=== PATIENT | male | born 1960 | race African-American/Black ===

== ENCOUNTER 2016-08-23 04:04 | Emergency (ER) | payer MEDICARE ==
[2016-08-23 02:12] LABS: BASOPHILS ABSOLUTE 0.03 10/3/uL (0.0-0.16); EOSINOPHILS 1.6 %; EOSINOPHILS ABSOLUTE 0.05 10/3/uL (0.0-0.53); HEMATOCRIT 35.1 % (40.0-51.0); HEMOGLOBIN 11.7 g/dL (13.6-17.8); IMMATURE GRANULOCYTES 0.6 %; IMMATURE GRANULOCYTES ABSOLUTE 0.02 10/3/uL (0.0-0.11); LYMPHOCYTES 35.4 %; LYMPHOCYTES ABSOLUTE 1.11 10/3/uL (0.67-4.30); MEAN CORPUS HGB CONC 33.3 g/dL (32.0-36.0); MEAN CORPUSCULAR HEMOGLOB 24.6 pg (26.0-34.0); MEAN CORPUSCULAR VOLUME 73.9 fL (80-100); MONOCYTES 12.1 %; MONOCYTES ABSOLUTE 0.38 10/3/uL (0.21-1.20); NEUTROPHILS 49.3 %; NEUTROPHILS ABSOLUTE 1.55 10/3/uL (2.02-8.40); RBC DISTRIBUTION WIDTH 21.2 % (12.0-16.0); RED CELL COUNT 4.75 10/6/uL (4.7-6.1); WHITE BLOOD CELLS 3.1 10/3/uL (4.5-10.5)
[2016-08-23 02:15] LABS: MANUAL DIFF NO %; PLATELET COUNT 100 10/3/uL (150-400)
[2016-08-23 02:17] LABS: A/G RATIO 0.5 (0.7-1.9); ALBUMIN 2.7 G/DL (3.5-5.0); ALKALINE PHOSPHATASE 114 U/L (45-117); BUN (BLOOD UREA NITROGEN) 19 MG/DL (6-23); CALCIUM, SERUM 7.7 MG/DL (8.5-10.4); CHLORIDE, SERUM 92 MMOL/L (96-112); CO2 (CARBON DIOXIDE) 25 MMOL/L (24-34); CREATININE 7.84 MG/DL (0.70-1.30); GFR AFRICAN AMERICAN 8 ML/MIN (>=60); GFR NON AFRICAN AMERICAN 7 ML/MIN (>=60); GLUCOSE, SERUM 84 MG/DL (60-99); POTASSIUM, SERUM 3.5 MMOL/L (3.5-5.3); SGOT(AST) 33 U/L (5-40); SGPT(ALT) 16 U/L (5-65); SODIUM, SERUM 132 MMOL/L (135-148); TOTAL BILIRUBIN 0.3 MG/DL (0-1.2); TOTAL PROTEIN 7.7 G/DL (6.0-8.5)
[2016-08-23 02:21] LABS: ACETAMINOPHEN LEVEL (TYLENOL) < 2.0 MCG/ML (10.0-20.0)
[2016-08-23 02:33] LABS: ALCOHOL 335 MG/DL (0)
[2016-08-23 02:34] LABS: PLATELET ESTIMATE DEC (ADEQUATE)
[2016-08-23 02:35] LABS: SPHEROCYTES OCC (0-2/OIF); TARGET CELLS OCC (1-2/OIF) (0-1/OIF)
[2016-08-23] MEDS ORDERED: NORV10 PO (17:52)
[2016-08-23] MEDS ORDERED: COREG12 PO (17:52)
[2016-08-23] MEDS ORDERED: BION TEARS OPH (17:52)
[2016-08-23] MEDS ORDERED: PRIN10 PO (17:52)
[2016-08-23] MEDS ORDERED: CYANO1000T PO (17:53)
== END 2016-08-23 10:09 | disposition home or self-care (01) ==
LOC: ER 04:04
PROVIDERS: Specialist
DX: F10.129 Alcohol abuse with intoxication, unspecified (principal); I13.11 Hypertensive heart and chronic kidney disease without heart failure, with stage 5 chronic kidney disease, or end stage renal disease; N18.6 End stage renal disease; F17.200 Nicotine dependence, unspecified, uncomplicated; Z99.2 Dependence on renal dialysis
CPT/HCPCS: 70450; 72125; 72170; 73060-RT; 73552-RT; 80053; 80307; 85025; 93005; 99285; G0480; J2405

== ENCOUNTER 2016-08-23 15:11 | Inpatient (IN) | payer MEDICARE ==
--- NOTE | ~2016-08-23 | HP ---
History And Physical [place] [id number] [facility] [place]. [address] NAME: REAL PAREDES : 62 STATUS : ADM IN [facility]#: [id number] AGE: 56 ADM/REG DATE : 08/23/16 MR#: [id number] REPORT SERV DATE: 08/24/16 DICTATED BY: MORENA SALVADOR DATE: 08/23/16 REPORT STATUS : Draft TRANSCRIBED BY: MODSilver DATE: 08/23/16 DATE OF ADMISSION: 08/23/2016 REASON FOR ADMISSION: Right femoral neck fracture after falling, after in a drunken state last night. PRIMARY CARE DOCTOR: Appears to be unclear. Goes to dialysis in [place] every Saturday, Saturday, Saturday via left arm AV fistula. HISTORY OF PRESENT ILLNESS: This is a 56-year-old male, known alcoholic, drinks about half pint of 80 proof alcohol per patient, known active smoker at least 35-pack years. Still actively smoking. The patient comes in, was admittedly drunk last night, blacked out, did not remember what happen, he fell, apparently hit his right side of the body, may have hit his head, unclear, came to, and states the last thing he knew after he fell he was in the emergency department today this morning. They did an x-ray. Initially ED did not think, the patient had a right femoral neck fracture. Upon Radiology read, indeed had a mildly impacted subcapital right femoral neck fracture. The patient had actually left the ED. The patient was called in transit going back home, call back into the emergency department for admission which occurred. The patient's last dialysis was Saturday. The patient's last drink was yesterday. The patient usually seeks medical care near the [facility]. The patient had positive chills. No fevers. Positive nausea. Positive vomiting. Positive diarrhea for several days. No chest pain. No chest pressure. Positive shortness of breath. Positive productive cough, last started on Saturday. The patient states he has had a productive cough since the last Saturday. REVIEW OF SYSTEMS: The patient also states he has inability to move his right wrist or having abduction of his right shoulder, exquisite pain to palpation in that area. PAST MEDICAL HISTORY: See above. PAST SURGICAL HISTORY: See above. ALLERGIES: APPARENTLY, NO KNOWN DRUG ALLERGIES. REVIEW OF SYSTEMS: History And Physical [address] [place]. [address] NAME: REAL PAREDES : 62 STATUS : ADM IN PAT#: [id number] AGE: 56 ADM/REG DATE : 08/23/16 MR#: [id number] REPORT SERV DATE: 08/24/16 DICTATED BY: MORENA SALVADOR DATE: 08/23/16 REPORT STATUS : Draft TRANSCRIBED BY: SUKHWINDER DATE: 08/23/16 Done, see HPI. Otherwise, negative. FAMILY HISTORY: Hypertension in at least one parent. HOME MEDICATIONS: See MAR. Continue what is relevant. OBJECTIVE: VITAL SIGNS: He is 180 systolic currently, this is from 164/96, 97.1 temp, 102 pulse, 23 respirations, 99% on room air. GENERAL: No acute distress. HEENT: PERRLA. No scleral icterus. CARDIOVASCULAR: Tachycardic, but regular. RESPIRATORY: Decreased breath sounds, bibasilar. Bibasilar crackles. ABDOMEN: Nontender, nondistended. Positive bowel sounds. EXTREMITIES: Ascitic fluid. Tenderness to palpation in his right upper extremity. He cannot have any range of motion of right shoulder abduction. No edema. No ecchymosis. NEURO: A and O x3/4, does not know the month, this is likely not his baseline. GCS of 15, otherwise. LABORATORY DATA: Lab shows a white count 13.1, hemoglobin 11.7, 100,000 platelets, T. bilirubin 0.3, alkaline phosphatase 114, calcium 7.7, albumin 2.4, 132 sodium, 3.5 potassium, 25 bicarb, 7.84 creatinine, 19 BUN, unclear baseline creatinine. Alcohol less than 10 now, AST over ALT 08/30. We will get a CT of his right upper extremity. Did have x-ray of his humerus, apparently was unremarkable. The patient has exquisite tenderness to palpation, decreased range of motion. X-ray of the right hip, see above. EKG sinus tach, 108. No ischemic ST-T changes. ASSESSMENT AND PLAN: 1. Right-sided fall with sustained mildly impacted subcapital right femoral neck fracture. 2. Decreased range of motion of right upper extremity with exquisite pain to right upper extremity. 3. End-stage renal disease, with left arteriovenous fistula. 4. Dialysis should be tomorrow. 5. Positive productive cough, history of active smoking with pancytopenia, systemic inflammatory response syndrome criteria, rule out pneumonia. 6. Question of cirrhosis history. 7. History of alcoholism. PLAN: We will go ahead and admit this patient. Dr. Arguello will be consulted. Also already been seen by Renal, who plans on doing dialysis after surgery tomorrow. His risk of possible withdrawal usually occur in 48 to 72 hours or after. We will place on Librium scheduled and Ativan p.r.n. Panculture. The patient given pancytopenia, get a CT abdomen and pelvis to rule out any cirrhosis. CT of his right upper extremity given concern for range of motion and negative humeral x-ray. CT of his brain as he does not know the month currently. Chest x-ray, given productive cough. Clinical COPD acute exacerbation, 2 out of 3 GOLD criteria, warranting Solu-Medrol, Spiriva, bronchodilator protocol. Requiring oxygen at this moment for which he is not on home oxygen. Will start him on labetalol and History And Physical [address] [address] NAME: REAL PAREDES : 62 STATUS : ADM IN PAT#: [id number] AGE: 56 ADM/REG DATE : 08/23/16 MR#: [id number] REPORT SERV DATE: 08/24/16 DICTATED BY: MORENA SALVADOR DATE: 08/23/16 REPORT STATUS : Draft TRANSCRIBED BY: MODL DATE: 08/23/16 hydralazine p.r.n. Make n.p.o. after midnight. Get hepatitis serologies. All questions were answered. It took well over 60 minutes to do. Reference [employer] and [employer]. WST/MODL Morena Salvador DO / [id number] CC: Chema Barrera M.D.
--- NOTE | ~2016-08-23 | DS ---
Discharge Summary [place] [address] [facility] [place]. [address] NAME: REAL PAREDES : 62 STATUS : DIS IN PAT#: [id number] AGE: 56 ADM/REG DATE : 08/23/16 MR#: [id number] REPORT SERV DATE: 08/29/16 DICTATED BY: HOOD JOHNSTON DATE: 08/29/16 REPORT STATUS : Draft TRANSCRIBED BY: MODL DATE: 08/29/16 ADMISSION DATE: 08/23/2016 DISCHARGE DATE: 08/28/2016 ADDENDUM: HOSPITAL COURSE: This patient was kept an extra day in the hospital because the rehab facility did not have any bed available that day. This patient remained stable. He has plans for dialyzing on the next day after being at rehab. This was discussed with Nephrology as well. Otherwise, he remained stable and is being discharged in stable condition. MAKI/SUKHWINDER Hood Johnston M.D. / [id number] CC: Hood Johnston M.D.
--- NOTE | ~2016-08-23 | CN ---
Consultation Report [facility] [address] [place]. [address] NAME: REAL PAREDES : 62 STATUS : ADM IN PAT#: [id number] AGE: 56 ADM/REG DATE : 08/23/16 MR#: [id number] REPORT SERV DATE: 08/23/16 DICTATED BY: VIKRAM AYALA DATE: 08/23/16 REPORT STATUS : Draft TRANSCRIBED BY: MODSilver DATE: 08/23/16 NEPHROLOGY CONSULTATION DATE OF CONSULTATION: INDICATION FOR CONSULTATION: End-stage renal disease management. HISTORY OF PRESENT ILLNESS: Mr. Paredes is a 56-year-old male who presented to the emergency room with right lower extremity pain after fall at home. He initially was sent out of the ER and then asked to return when x-rays were over-read and found that he had a right femoral neck fracture. He is followed on chronic dialysis at [facility], dialyzing Saturday, Saturday, and Saturday by left upper extremity AV fistula. His alcohol level was positive at 335, potassium is 3.5, creatinine 7.84. Sodium 132, glucose 84. Hemoglobin 11.7, WBC 3.1, platelet count 100. He has a longstanding history of ETOH abuse, pancytopenia, and is presumed to have underlying cirrhosis. PAST MEDICAL HISTORY: End-stage renal disease, dialyzing Saturday, Saturday, and Saturday at [facility] by left upper extremity AV fistula; hypertension; anemia; thrombocytopenia; neutropenia; history of recurrent right pleural effusion; possible cirrhosis; history of tachycardia; history of nephrectomy as he donated a kidney to his brother; ETOH abuse; tobacco abuse. SOCIAL HISTORY: The patient is . Has two children. 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 Currently, drinks one-half pint of alcohol daily and smokes one pack of cigarettes daily. FAMILY HISTORY: Father with diabetes, of leukemia. Mother with diabetes and hypertension. of renal failure, on dialysis. One brother with diabetes who developed end-stage renal disease, required transplant. One brother dying at age 43 from myocardial infarction. HOME MEDICATIONS: Amlodipine, carvedilol, lisinopril, vitamin B12. ALLERGIESN: one known. REVIEW OF SYSTEMS: HEENT: No change in visual acuity. No epistaxis. No otic infection. No pharyngitis. PULMONARY: Occasional shortness breath. No cough or hemoptysis. CARDIAC: Notes rapid heart rate. Occasional swelling in feet. No chest pain. GI: No nausea, vomiting, or melena. : Denies gross hematuria. MUSCULOSKELETAL: Pain in right hip and right upper extremity. INTEGUMENT: No rash. No itching. NEUROLOGIC: No seizure history. No lateralizing weakness. Consultation Report [place] [address] [place]. [address] NAME: REAL PAREDES : 62 STATUS : ADM IN [facility]#: [id number] AGE: 56 ADM/REG DATE : 08/23/16 MR#: [id number] REPORT SERV DATE: 08/23/16 DICTATED BY: VIKRAM AYALA DATE: 08/23/16 REPORT STATUS : Draft TRANSCRIBED BY: SUKHWINDER DATE: 08/23/16 Remainder of 12-point review of systems is negative. PHYSICAL EXAMINATION: VITAL SIGNS: Blood pressure 164/96, temperature 97.1, respiratory rate 22, pulse 102. GENERAL: Pleasant male, alert, cooperative. HEENT: Eyes, no scleral icterus. Pupils equal, reactive to light. Extraocular movement intact. Nares patent. No discharge. Throat, no injection. Mucous membranes moist. NECK: No thyromegaly, masses, or bruits. CHEST/LUNGS: Few late crackles laterally. CARDIAC: Regular tachycardia. No gallop. No rub. ABDOMEN: Mild right lower quadrant discomfort. Bowel sounds normoactive. No hepatosplenomegaly. : Rectal not performed. EXTREMITIES: No edema. Left upper extremity AV fistula with good bruit and thrill. DERMIS: No rash. No skin lesions. NEUROLOGIC: Cranial nerves intact. Can move all extremities, but has pain with right lower extremity. MUSCULOSKELETAL: No deformity. Pain with movement of right lower extremity. IMPRESSION: 1. Right femoral neck fracture following fall at home. 2. End-stage renal disease, dialyzing Saturday, Saturday, and Saturday at [facility] by left upper extremity arteriovenous fistula. 3. Hypertension. 4. Pancytopenia. 5. Probable cirrhosis. 6. ETOH abuse. 7. Tobacco abuse. 8. History of tachycardia. PLAN: 1. Labs. 2. Hemodialysis, . 3. Medications reviewed. 4. Ativan to assist with preventing ETOH withdrawal. CG/SUKHWINDER Vikram Ayala M.D. / [id number] Consultation Report [address] [place]. [address] NAME: REAL PAREDES : 62 STATUS : ADM IN PAT#: [id number] AGE: 56 ADM/REG DATE : 08/23/16 MR#: [id number] REPORT SERV DATE: 08/23/16 DICTATED BY: VIKRAM AYALA DATE: 08/23/16 REPORT STATUS : Draft TRANSCRIBED BY: SUKHWINDER DATE: 08/23/16 CC: Chema Barrera M.D.
--- NOTE | ~2016-08-23 | HP ---
History And Physical [address] [place]. [address] NAME: REAL PAREDES : 62 STATUS : ADM IN PAT#: [id number] AGE: 56 ADM/REG DATE : 08/23/16 MR#: [id number] REPORT SERV DATE: 08/24/16 DICTATED BY: ESTELITA CAIN DATE: 08/24/16 REPORT STATUS : Draft TRANSCRIBED BY: MODSilver DATE: 08/24/16 DATE OF ADMISSION: 08/23/2016 CHIEF COMPLAINT: Right hip pain and right shoulder pain. HISTORY: This is a 56-year-old male who said he tripped and fell Saturday off a porch, and since then, his shoulder has felt painful and "paralyzed." More importantly, he has complained of right hip pain, and he is unable to walk. He denies pain or injury elsewhere. ALLERGIES: NONE. MEDICATIONS: See chart. PAST MEDICAL HISTORY: Hypertension and chronic renal failure and dialysis. PAST SURGICAL HISTORY: Hernia surgery. SOCIAL HISTORY: A pack a day cigarettes for 16 years. About 4 alcoholic beverages 7 days a week. No illicit drug use known. FAMILY HISTORY: No known anesthetic complications. REVIEW OF SYSTEMS: As above. PHYSICAL EXAMINATION: GENERAL: He is alert and oriented x3 and in no apparent distress. HEENT: Atraumatic and normocephalic. NECK: Supple. CHEST: Symmetric. MUSCULOSKELETAL: Very tender over the right shoulder with some questionable anterior prominence. On the shoulder, he has severe pain with any attempted range of motion. Skin is intact. Compartment supple. 2+ pulses. Some very weak dorsiflexions in the right wrist as well as globally throughout the right upper extremity. Right lower extremity pain with any range of motion. Thready pulses. Skin is intact. Compartment supple. Somewhat subjectively decreased sensation. LABORATORY DATA: CT scan, right femoral neck fracture. ASSESSMENT: 1. Right femoral neck fracture. 2. Suspect right shoulder dislocation with questionable neurologic injury from this fall. 3. Dialysis. 4. Alcohol abuse. PLAN: I am seeing him in concert with the medical doctor. We will plan a right hip ORIF. History And Physical [address] [place]. [address] NAME: REAL PAREDES Anita : 62 STATUS : ADM IN PAT#: [id number] AGE: 56 ADM/REG DATE : 08/23/16 MR#: [id number] REPORT SERV DATE: 08/24/16 DICTATED BY: ESTELITA CAIN DATE: 08/24/16 REPORT STATUS : Draft TRANSCRIBED BY: SUKHWINDER DATE: 08/24/16 He has had no imaging of the shoulder, we will get x-rays of his shoulder as well, and determine a plan from there. WTB/SUKHWINDER Stan Cain M.D. / [id number] CC: Chema Barrera M.D.
--- NOTE | ~2016-08-23 | DS ---
Discharge Summary [facility] [address] [place]. [address] NAME: REAL PAREDES : 62 STATUS : ADM IN PAT#: [id number] AGE: 56 ADM/REG DATE : 08/23/16 MR#: [id number] REPORT SERV DATE: 08/28/16 DICTATED BY: HOOD JOHNSTON DATE: 08/27/16 REPORT STATUS : Draft TRANSCRIBED BY: MODL DATE: 08/27/16 ADMISSION DATE: 08/23/2016 DISCHARGE DATE: 08/27/2016 DISCHARGE DIAGNOSES: 1. Right hip fracture, status post ORIF by Dr. Arguello. 2. End-stage kidney disease with solitary kidney currently on 3 times a week hemodialysis. 3. Chronic alcohol abuse. No evidence of DTs. 4. Chronic obstructive pulmonary disease. 5. Pancytopenia most likely due to alcohol abuse. 6. History of nephrectomy donated to his brother. CONSULTANTS DURING THIS HOSPITALIZATION: 1. Stan Arguello M.D., of Orthopedic Surgery. 2. Casimiro Gallegos M.D., of Nephrology. INVASIVE PROCEDURES DONE DURING THIS HOSPITALIZATION: ORIF of the right hip from a traumatic hip fracture. BRIEF HISTORY OF PRESENT ILLNESS: The patient is a 56-year-old, male, apparently heavily drinks about half pint of 80 proof alcohol and known active smoker, came in where he had fallen and suffered a hip fracture, so he was admitted. For detailed history and physical exam, please see note dictated by Dr. Benjy Mccoy on 08/23/2012. HOSPITAL COURSE: After being admitted to the hospital, this patient was dialyzed and then taken to the operating room for performing the ORIF. Postoperatively, this patient has done well. He has worked with Physical Therapy but he is still not fully functional where he can stay home by himself as he has to drive himself to dialysis. So it is decided that he would need rehab. This will be arranged through our Case Management Department. We did control his alcoholism by use of Librium and Ativan protocol as well as we gave him thiamine, folate, and B12. He has continued to do well. He has no evidence of DTs. He does have some slight confusion. This may be related to the use of anesthesia and this should hopefully get better with time going forward. Otherwise, he remained stable and is being discharged in stable condition. DISCHARGE DISPOSITION: To rehab. DISCHARGE ACTIVITY: Per facility. DISCHARGE DIET: Renal diet. DISCHARGE MEDICATIONS: Norvasc 10 mg once daily, Coreg 12.5 mg twice daily, Librium 10 mg p.o. taper, iron 300 mg p.o. with breakfast and supper, lisinopril 10 mg once daily, Coumadin 5 mg once daily, DuoNeb every six hours p.r.n., Pulmicort 1 mg twice daily inhalation, hydrocodone 7.5/325 one tablet q.4 p.r.n. for pain, oxycodone 5 mg two tabs every four hours p.r.n. for breakthrough pain, MiraLax one packet p.o. twice daily p.r.n. Discharge Summary [address] [address] NAME: REAL PAREDES : 62 STATUS : ADM IN [facility]#: [id number] AGE: 56 ADM/REG DATE : 08/23/16 MR#: [id number] REPORT SERV DATE: 08/28/16 DICTATED BY: HOOD JOHNSTON DATE: 08/27/16 REPORT STATUS : Draft TRANSCRIBED BY: SUKHWINDER DATE: 08/27/16 for constipation, Artificial Tears in both eyes, vitamin B12 one tablet daily. DISCHARGE FOLLOWUP: With Nephrology as previously scheduled with patient's primary care physician doctor. MAKI/SUKHWINDER Hood Johnston M.D. / [id number] CC: Hood Johnston M.D.
--- NOTE | ~2016-08-23 | OP ---
Record Of Operation [facility] [address] [place]. [address] NAME: REAL PAREDES : 62 STATUS : DIS IN PAT#: [id number] AGE: 56 ADM/REG DATE : 08/23/16 MR#: [id number] REPORT SERV DATE: 08/28/16 DICTATED BY: ESTELITA CAIN DATE: 08/28/16 REPORT STATUS : Draft TRANSCRIBED BY: MODL DATE: 08/28/16 DATE OF PROCEDURE: 08/24/2016 PREOPERATIVE DIAGNOSES: 1. Right femoral neck fracture, nondisplaced. 2. Right shoulder dislocation. POSTOPERATIVE DIAGNOSES: 1. Right femoral neck fracture, nondisplaced. 2. Right shoulder dislocation. PROCEDURES: 1. Open reduction and internal fixation, right femoral neck fracture. 2. Closed reduction of right shoulder dislocation. DESCRIPTION OF PROCEDURE: The patient was taken to the operating room and placed supine on the table in normal fashion without incident. General anesthetic was induced per the anesthesiologist. While under anesthesia and fluoroscopic guidance, the shoulder was relocated from an anterior dislocation, but it was grossly unstable to be easily dislocated anteriorly and back it posteriorly again. He was obviously much too ill for any type of fixation. He was placed in a sling in the closed position and then attention directed to the hip. He was carefully positioned, padded, prepped, and draped on the fracture table. Under fluoroscopic guidance, after placing the isolation drape, guidewire was placed percutaneously superior to the level of the lesser trochanter. I am into the head, checked on AP and lateral views. This was followed by a small incision, parallel pin guide was used to place two other guidewires. This followed by depth gauge, drilling near the cortex and self-drilling and self-tapping screws were placed and tightened by hand. After using power initially, they were checked in AP and lateral views. Again, there was excellent positioning, guidewires removed, wound irrigated, closed and dressed sterilely. The patient was awakened and taken to the postanesthesia care unit without incident. COMPLICATIONS: None. SPECIMENS: None. ESTIMATED BLOOD LOSS: About 10 mL. WTB/MODL Stan Cain M.D. / [id number] Record Of Operation [place] [address] [place]. [address] NAME: REAL PAREDES : 62 STATUS : DIS IN PAT#: [id number] AGE: 56 ADM/REG DATE : 08/23/16 MR#: [id number] REPORT SERV DATE: 08/28/16 DICTATED BY: ESTELITA CAIN DATE: 08/28/16 REPORT STATUS : Draft TRANSCRIBED BY: SUKHWINDER DATE: 08/28/16 CC: Hood Johnston M.D.
[2016-08-23] MEDS ORDERED: COREG12 PO (17:52)
[2016-08-23] MEDS ORDERED: BION TEARS OPH (17:52)
[2016-08-23] MEDS ORDERED: NORV10 PO (17:52)
[2016-08-23] MEDS ORDERED: PRIN10 PO (17:52)
[2016-08-23] MEDS ORDERED: CYANO1000T PO (17:53)
[2016-08-23 22:27] LABS: BASOPHILS 0.2 %; BASOPHILS ABSOLUTE 0.01 10/3/uL (0.0-0.16); EOSINOPHILS 0 %; HEMOGLOBIN 10.5 g/dL (13.6-17.8); IMMATURE GRANULOCYTES 0.2 %; IMMATURE GRANULOCYTES ABSOLUTE 0.01 10/3/uL (0.0-0.11); LYMPHOCYTES 16.5 %; MEAN CORPUS HGB CONC 33.7 g/dL (32.0-36.0); MEAN CORPUSCULAR HEMOGLOB 24.5 pg (26.0-34.0); MEAN CORPUSCULAR VOLUME 72.7 fL (80-100); MONOCYTES 14.4 %; MONOCYTES ABSOLUTE 0.61 10/3/uL (0.21-1.20); NEUTROPHILS 68.7 %; NEUTROPHILS ABSOLUTE 2.91 10/3/uL (2.02-8.40); PLATELET COUNT 89 10/3/uL (150-400); RBC DISTRIBUTION WIDTH 21.5 % (12.0-16.0); RED CELL COUNT 4.29 10/6/uL (4.7-6.1); WHITE BLOOD CELLS 4.2 10/3/uL (4.5-10.5)
[2016-08-23 22:29] LABS: HEMATOCRIT 31.2 % (40.0-51.0)
[2016-08-23 22:30] LABS: MANUAL DIFF NO %
[2016-08-23 22:45] LABS: A/G RATIO 0.5 (0.7-1.9); ALBUMIN 2.6 G/DL (3.5-5.0); CALCIUM, SERUM 7.5 MG/DL (8.5-10.4); CHLORIDE, SERUM 89 MMOL/L (96-112); CO2 (CARBON DIOXIDE) 29 MMOL/L (24-34); GLOBULIN 4.8 G/DL (2.5-4.1); PHOSPHORUS, SERUM 6.7 MG/DL (2.5-4.5); SGOT(AST) 33 U/L (5-40); SGPT(ALT) 16 U/L (5-65); SODIUM, SERUM 132 MMOL/L (135-148); TOTAL BILIRUBIN 0.6 MG/DL (0-1.2); TOTAL PROTEIN 7.4 G/DL (6.0-8.5); TROPONIN I <0.02 NG/ML (<0.05)
[2016-08-23 22:46] LABS: ALKALINE PHOSPHATASE 102 U/L (45-117); BUN (BLOOD UREA NITROGEN) 26 MG/DL (6-23); CREATININE 9.17 MG/DL (0.70-1.30); GFR AFRICAN AMERICAN 7 ML/MIN (>=60); GFR NON AFRICAN AMERICAN 6 ML/MIN (>=60); GLUCOSE, SERUM 108 MG/DL (60-99); POTASSIUM, SERUM 4.6 MMOL/L (3.5-5.3)
[2016-08-24 08:07] LABS: INTERNATIONAL NORMAL RATI 1.2 UNITS (-); PROTIME (NOT ORD) 14.8 SEC (12.0-14.5)
[2016-08-24 08:11] LABS: GLYCOHEMOGLOBIN (HbA1c) 4.5 % (4.7-6.1)
[2016-08-24 08:16] LABS: BASOPHILS 0 %; EOSINOPHILS 0 %; HEMATOCRIT 32.8 % (40.0-51.0); IMMATURE GRANULOCYTES 0.4 %; IMMATURE GRANULOCYTES ABSOLUTE 0.01 10/3/uL (0.0-0.11); LYMPHOCYTES 6.7 %; LYMPHOCYTES ABSOLUTE 0.19 10/3/uL (0.67-4.30); MEAN CORPUS HGB CONC 33.5 g/dL (32.0-36.0); MEAN CORPUSCULAR HEMOGLOB 24.8 pg (26.0-34.0); MONOCYTES ABSOLUTE 0.17 10/3/uL (0.21-1.20); NEUTROPHILS 86.9 %; NEUTROPHILS ABSOLUTE 2.47 10/3/uL (2.02-8.40); PLATELET COUNT 104 10/3/uL (150-400); RBC DISTRIBUTION WIDTH 21.3 % (12.0-16.0); RED CELL COUNT 4.43 10/6/uL (4.7-6.1); WHITE BLOOD CELLS 2.8 10/3/uL (4.5-10.5)
[2016-08-24 08:18] LABS: MANUAL DIFF NO %
[2016-08-24 08:40] LABS: ALBUMIN 2.5 G/DL (3.5-5.0); ANISOCYTOSIS 1+ (5-10/OIF) (0-5/OIF); CHLORIDE, SERUM 88 MMOL/L (96-112); CO2 (CARBON DIOXIDE) 28 MMOL/L (24-34); CREATININE 9.66 MG/DL (0.70-1.30); GFR AFRICAN AMERICAN 6 ML/MIN (>=60); GFR NON AFRICAN AMERICAN 5 ML/MIN (>=60); GIANT PLATELET RARE; HYPOCHROMIA 1+ (3-10/OIF) (0-2/OIF); MICROCYTES 1+ (5-10/OIF) (0-5/OIF); PLATELET ESTIMATE SLT DEC (ADEQUATE); POLYCHROMASIA 1+ (2-5/OIF) (0-1/OIF); SODIUM, SERUM 130 MMOL/L (135-148); TARGET CELLS OCC (1-2/OIF) (0-1/OIF)
[2016-08-24 08:41] LABS: BUN (BLOOD UREA NITROGEN) 30 MG/DL (6-23); GLUCOSE, SERUM 135 MG/DL (60-99); PHOSPHORUS, SERUM 7.9 MG/DL (2.5-4.5); POTASSIUM, SERUM 6.1 MMOL/L (3.5-5.3)
[2016-08-24 09:07] LABS: HEPATITIS B SURFACE ANTIGEN NON-REACTIVE (NON-REACT)
[2016-08-24 09:15] LABS: HEPATITIS B CORE AB IGM NON-REACTIVE (NON-REAC); HEPATITIS C ANTIBODY NON-REACTIVE (NON-REACT)
[2016-08-24 09:17] LABS: HEP A ANTIBODY IGM NON-REACTIVE (NON-REACT)
[2016-08-24 09:29] LABS: BASOPHILS 0 %; EOSINOPHILS 0 %; HEMATOCRIT 34.5 % (40.0-51.0); HEMOGLOBIN 11.3 g/dL (13.6-17.8); IMMATURE GRANULOCYTES 0.4 %; IMMATURE GRANULOCYTES ABSOLUTE 0.01 10/3/uL (0.0-0.11); LYMPHOCYTES 9.1 %; LYMPHOCYTES ABSOLUTE 0.23 10/3/uL (0.67-4.30); MEAN CORPUS HGB CONC 32.8 g/dL (32.0-36.0); MEAN CORPUSCULAR HEMOGLOB 24.3 pg (26.0-34.0); MEAN CORPUSCULAR VOLUME 74.2 fL (80-100); MONOCYTES 5.9 %; MONOCYTES ABSOLUTE 0.15 10/3/uL (0.21-1.20); NEUTROPHILS 84.6 %; NEUTROPHILS ABSOLUTE 2.15 10/3/uL (2.02-8.40); PLATELET COUNT 110 10/3/uL (150-400); RBC DISTRIBUTION WIDTH 21.4 % (12.0-16.0); RED CELL COUNT 4.65 10/6/uL (4.7-6.1); WHITE BLOOD CELLS 2.5 10/3/uL (4.5-10.5)
[2016-08-24 09:32] LABS: MANUAL DIFF NO %
[2016-08-24 09:37] LABS: INTERNATIONAL NORMAL RATI 1.2 UNITS (-); PROTIME (NOT ORD) 14.8 SEC (12.0-14.5)
[2016-08-24 09:42] LABS: BUN (BLOOD UREA NITROGEN) 31 MG/DL (6-23); CALCIUM, SERUM 8.2 MG/DL (8.5-10.4); CHLORIDE, SERUM 87 MMOL/L (96-112); CO2 (CARBON DIOXIDE) 28 MMOL/L (24-34); CREATININE 9.75 MG/DL (0.70-1.30); GFR AFRICAN AMERICAN 6 ML/MIN (>=60); GFR NON AFRICAN AMERICAN 5 ML/MIN (>=60); GLUCOSE, SERUM 132 MG/DL (60-99); POTASSIUM, SERUM 6.1 MMOL/L (3.5-5.3); SODIUM, SERUM 128 MMOL/L (135-148)
[2016-08-24 10:08] LABS: ANISOCYTOSIS 1+ (5-10/OIF) (0-5/OIF); MICROCYTES 1+ (5-10/OIF) (0-5/OIF); PLATELET ESTIMATE SLT DEC (ADEQUATE)
[2016-08-24 10:09] LABS: HYPOCHROMIA 1+ (3-10/OIF) (0-2/OIF); TARGET CELLS OCC (1-2/OIF) (0-1/OIF)
[2016-08-24 16:55] LABS: CALCIUM, SERUM 8.5 MG/DL (8.5-10.4); CHLORIDE, SERUM 95 MMOL/L (96-112); CO2 (CARBON DIOXIDE) 28 MMOL/L (24-34); GFR AFRICAN AMERICAN 14 ML/MIN (>=60); GFR NON AFRICAN AMERICAN 12 ML/MIN (>=60); GLUCOSE, SERUM 155 MG/DL (60-99)
[2016-08-24 16:56] LABS: BUN (BLOOD UREA NITROGEN) 14 MG/DL (6-23); CREATININE 4.87 MG/DL (0.70-1.30); SODIUM, SERUM 137 MMOL/L (135-148)
[2016-08-25 08:56] LABS: BASOPHILS 0 %; EOSINOPHILS 0 %; HEMATOCRIT 32.1 % (40.0-51.0); HEMOGLOBIN 10.8 g/dL (13.6-17.8); IMMATURE GRANULOCYTES 0.2 %; IMMATURE GRANULOCYTES ABSOLUTE 0.01 10/3/uL (0.0-0.11); LYMPHOCYTES 9.9 %; LYMPHOCYTES ABSOLUTE 0.45 10/3/uL (0.67-4.30); MEAN CORPUS HGB CONC 33.6 g/dL (32.0-36.0); MEAN CORPUSCULAR HEMOGLOB 25.1 pg (26.0-34.0); MEAN CORPUSCULAR VOLUME 74.7 fL (80-100); MONOCYTES 14.8 %; MONOCYTES ABSOLUTE 0.67 10/3/uL (0.21-1.20); NEUTROPHILS 75.1 %; PLATELET COUNT 141 10/3/uL (150-400); RBC DISTRIBUTION WIDTH 21.4 % (12.0-16.0)
[2016-08-25 08:59] LABS: MANUAL DIFF NO %; WHITE BLOOD CELLS 4.5 10/3/uL (4.5-10.5)
[2016-08-25 09:04] LABS: INTERNATIONAL NORMAL RATI 1.2 UNITS (-); PROTIME (NOT ORD) 14.9 SEC (12.0-14.5)
[2016-08-25 09:17] LABS: ALBUMIN 2.5 G/DL (3.5-5.0); BUN (BLOOD UREA NITROGEN) 30 MG/DL (6-23); CALCIUM, SERUM 8.4 MG/DL (8.5-10.4); CHLORIDE, SERUM 95 MMOL/L (96-112); CO2 (CARBON DIOXIDE) 27 MMOL/L (24-34); CREATININE 7.54 MG/DL (0.70-1.30); GFR AFRICAN AMERICAN 8 ML/MIN (>=60); GFR NON AFRICAN AMERICAN 7 ML/MIN (>=60); GLUCOSE, SERUM 152 MG/DL (60-99); PHOSPHORUS, SERUM 7.4 MG/DL (2.5-4.5); POTASSIUM, SERUM 4.8 MMOL/L (3.5-5.3); SODIUM, SERUM 133 MMOL/L (135-148)
[2016-08-25 11:12] LABS: PLATELET ESTIMATE SLT DEC (ADEQUATE)
[2016-08-25 11:13] LABS: HYPOCHROMIA 1+ (3-10/OIF) (0-2/OIF); MICROCYTES 1+ (5-10/OIF) (0-5/OIF); POLYCHROMASIA 1+ (2-5/OIF) (0-1/OIF); TARGET CELLS FEW (3-10/OIF) (0-1/OIF); TEARDROP SHAPED RBCS OCC (0-2/OIF)
[2016-08-25 11:18] LABS: ANISOCYTOSIS 1+ (5-10/OIF) (0-5/OIF)
[2016-08-25 11:19] LABS: HELMET CELLS OCC (0-2/OIF)
[2016-08-26 07:44] LABS: BASOPHILS 0 %; EOSINOPHILS 0 %; HEMATOCRIT 29.9 % (40.0-51.0); HEMOGLOBIN 9.9 g/dL (13.6-17.8); IMMATURE GRANULOCYTES 0.2 %; IMMATURE GRANULOCYTES ABSOLUTE 0.01 10/3/uL (0.0-0.11); LYMPHOCYTES 11.8 %; MEAN CORPUS HGB CONC 33.1 g/dL (32.0-36.0); MEAN CORPUSCULAR HEMOGLOB 24.1 pg (26.0-34.0); MEAN CORPUSCULAR VOLUME 72.9 fL (80-100); MONOCYTES 8.9 %; MONOCYTES ABSOLUTE 0.53 10/3/uL (0.21-1.20); NEUTROPHILS 79.1 %; NEUTROPHILS ABSOLUTE 4.71 10/3/uL (2.02-8.40); PLATELET COUNT 136 10/3/uL (150-400); RBC DISTRIBUTION WIDTH 21.1 % (12.0-16.0)
[2016-08-26 07:46] LABS: MANUAL DIFF NO %
[2016-08-26 07:49] LABS: INTERNATIONAL NORMAL RATI 1.2 UNITS (-); PROTIME (NOT ORD) 14.9 SEC (12.0-14.5)
[2016-08-26 07:55] LABS: CALCIUM, SERUM 7.9 MG/DL (8.5-10.4); CHLORIDE, SERUM 89 MMOL/L (96-112); CO2 (CARBON DIOXIDE) 25 MMOL/L (24-34); POTASSIUM, SERUM 4.2 MMOL/L (3.5-5.3); SODIUM, SERUM 129 MMOL/L (135-148)
[2016-08-26 07:56] LABS: BUN (BLOOD UREA NITROGEN) 44 MG/DL (6-23); CREATININE 8.58 MG/DL (0.70-1.30); GFR AFRICAN AMERICAN 7 ML/MIN (>=60); GFR NON AFRICAN AMERICAN 6 ML/MIN (>=60); GLUCOSE, SERUM 103 MG/DL (60-99); PHOSPHORUS, SERUM 5.6 MG/DL (2.5-4.5)
[2016-08-26 08:21] LABS: ANISOCYTOSIS 1+ (5-10/OIF) (0-5/OIF); PLATELET ESTIMATE SLT DEC (ADEQUATE); POIKILOCYTOSIS 1+ (5-10/OIF) (0-5/OIF)
[2016-08-26 08:22] LABS: TARGET CELLS FEW (3-10/OIF) (0-1/OIF)
[2016-08-27 07:04] LABS: ALBUMIN 2.2 G/DL (3.5-5.0); BUN (BLOOD UREA NITROGEN) 55 MG/DL (6-23); CALCIUM, SERUM 7.6 MG/DL (8.5-10.4); CHLORIDE, SERUM 90 MMOL/L (96-112); CO2 (CARBON DIOXIDE) 26 MMOL/L (24-34); GFR AFRICAN AMERICAN 6 ML/MIN (>=60); GFR NON AFRICAN AMERICAN 5 ML/MIN (>=60); GLUCOSE, SERUM 107 MG/DL (60-99); PHOSPHORUS, SERUM 4.3 MG/DL (2.5-4.5); SODIUM, SERUM 130 MMOL/L (135-148)
[2016-08-27 07:08] LABS: INTERNATIONAL NORMAL RATI 1.9 UNITS (-)
[2016-08-27 07:09] LABS: PROTIME (NOT ORD) 21.5 SEC (12.0-14.5)
[2016-08-27 08:24] LABS: BASOPHILS 0 %; EOSINOPHILS 1.3 %; EOSINOPHILS ABSOLUTE 0.05 10/3/uL (0.0-0.53); HEMOGLOBIN 9.5 g/dL (13.6-17.8); IMMATURE GRANULOCYTES 0.3 %; IMMATURE GRANULOCYTES ABSOLUTE 0.01 10/3/uL (0.0-0.11); LYMPHOCYTES 16.1 %; LYMPHOCYTES ABSOLUTE 0.62 10/3/uL (0.67-4.30); MEAN CORPUS HGB CONC 33.9 g/dL (32.0-36.0); MEAN CORPUSCULAR HEMOGLOB 24.9 pg (26.0-34.0); MEAN CORPUSCULAR VOLUME 73.3 fL (80-100); MEAN PLATELET VOLUME 9.3 fL (9.2-13.0); MONOCYTES 15.6 %; NEUTROPHILS 66.7 %; NEUTROPHILS ABSOLUTE 2.56 10/3/uL (2.02-8.40); PLATELET COUNT 133 10/3/uL (150-400); RBC DISTRIBUTION WIDTH 20.5 % (12.0-16.0); RED CELL COUNT 3.82 10/6/uL (4.7-6.1); WHITE BLOOD CELLS 3.8 10/3/uL (4.5-10.5)
[2016-08-27 08:26] LABS: MANUAL DIFF NO %
[2016-08-27 08:39] LABS: MICROCYTES 1+ (5-10/OIF) (0-5/OIF); PLATELET ESTIMATE SLT DEC (ADEQUATE)
[2016-08-27 08:40] LABS: POIKILOCYTOSIS 1+ (5-10/OIF) (0-5/OIF)
[2016-08-27 08:41] LABS: POLYCHROMASIA 1+ (2-5/OIF) (0-1/OIF)
[2016-08-27 08:42] LABS: ANISOCYTOSIS 1+ (5-10/OIF) (0-5/OIF); SCHISTOCYTES OCC (0-2/OIF)
[2016-08-28 07:13] LABS: INTERNATIONAL NORMAL RATI 2.4 UNITS (-)
[2016-08-28 07:16] LABS: PROTIME (NOT ORD) 26.3 SEC (12.0-14.5)
== END 2016-08-28 12:49 | DRG 480 ==
LOC: ER 15:11 → 1SO 19:38
PROVIDERS: Internal Medicine; Nurse Practitioner; Specialist
PROC: 0RSJXZZ Reposition Right Shoulder Joint, External Approach (ICD-10-PCS; 2016-08-24)
PROC: 5A1D60Z (ICD-10-PCS; 2016-08-24)
PROC: 0QS604Z Reposition Right Upper Femur with Internal Fixation Device, Open Approach (ICD-10-PCS; principal; 2016-08-24 16:45)
DX: S72.011A Unspecified intracapsular fracture of right femur, initial encounter for closed fracture (principal); N18.6 End stage renal disease; D61.818 Other pancytopenia; R65.10 Systemic inflammatory response syndrome (SIRS) of non-infectious origin without acute organ dysfunction; I12.0 Hypertensive chronic kidney disease with stage 5 chronic kidney disease or end stage renal disease; E87.1 Hypo-osmolality and hyponatremia; E87.5 Hyperkalemia; S43.004A Unspecified dislocation of right shoulder joint, initial encounter; K70.30 Alcoholic cirrhosis of liver without ascites; W17.89XA Other fall from one level to another, initial encounter; J44.9 Chronic obstructive pulmonary disease, unspecified; D63.1 Anemia in chronic kidney disease; Y90.8 Blood alcohol level of 240 mg/100 ml or more; F17.210 Nicotine dependence, cigarettes, uncomplicated; F10.20 Alcohol dependence, uncomplicated; Z90.5 Acquired absence of kidney; Z99.2 Dependence on renal dialysis; Z79.899 Other long term (current) drug therapy
CPT/HCPCS: 70450; 71010; 72125; 72170; 73030-RT; 73060-RT; 73200-RT; 73552-RT; 73700-LT; 74176; 76000; 80048; 80053; 80069; 80074; 80307; 82140; 82962; 83036; 83735; 84100; 84145; 84443; 84484; 85025; 85610; 87040; 93005; 94640; 96374; 97110-GP; 97116-GP; 97162-GP; 97166-GO; 97530-GP; 99285; A9270-GY; C1713; C1769; G0257; G0480; G8987-CL-GO; G8988-CK-GO; J0690; J1170; J1956; J2250; J2270; J2370; J2405; J2930; J3010; J3411

== ENCOUNTER 2016-09-17 05:56 | Inpatient (IN) | payer MEDICARE ==
--- NOTE | ~2016-09-17 | CN ---
Consultation Report [facility] [address] [place]. [address] NAME: REAL PAREDES : 62 STATUS : ADM IN [facility]#: [id number] AGE: 56 ADM/REG DATE : 09/17/16 MR#: [id number] REPORT SERV DATE: 09/17/16 DICTATED BY: JEFFERY UMAÑA DATE: 09/17/16 REPORT STATUS : Draft TRANSCRIBED BY: MODSilver DATE: 09/17/16 NEPHROLOGY CONSULTATION DATE OF CONSULTATION: 09/17/2016 CHIEF COMPLAINT: Shortness of breath and hypoxia. HISTORY OF PRESENT ILLNESS: The patient is a 56-year-old male with significant past medical history of ESRD, chronic pancytopenia, alcohol abuse, tobacco use, presents with increasing shortness of breath within the past 24-48 hours. He was recently hospitalized at [facility] status post a fall. The patient required an ORIF of his right hip due to right neck femoral fracture. Also, he had a dislocated right shoulder that was repositioned. The patient was discharged to the [facility] for rehabilitation. The patient is going to dialysis on Mondays, Wednesdays, and Fridays at [facility] in [place]. Dry weight of approximately 62 kg, increased in a stepwise fashion. The patient's weight is currently 69-70 kg. Chest x-ray shows pulmonary edema and questionable pneumonia. He denies any fevers, chills, or cough, but does have shortness of breath. He does utilize tobacco on a daily basis. His procalcitonin is 1.18. His white blood cell count is 6.8. He has no left shift. He is noted to have elevated BNP. No positive cardiac markers. No chest pain. No palpitations. His hemoglobin is 7.8. His CO2 is 24.1. PAST MEDICAL HISTORY/PAST SURGICAL HISTORY: As noted above. SOCIAL HISTORY: Currently at the [facility]. Positive tobacco. Positive alcohol. FAMILY MEDICAL HISTORY: No known kidney disease. ALLERGIES: ALLERGIES TO MEDICATIONS, NO KNOWN DRUG ALLERGIES. MEDICATIONS: Include, 1. Carvedilol 12.5 mg p.o. b.i.d. 2. Colace 100 mg twice a day. 3. Iron sulfate daily. 4. Budesonide 0.5/2 mL one vial nebulizer twice a day. 5. [place] 7.5 mg p.o. q.6 hours p.r.n. 6. Amlodipine 10 mg daily. 7. Lisinopril 10 mg daily. 8. PhosLo 667 t.i.d. with meals. 9. Vitamin B12. 10.Thiamin. REVIEW OF SYSTEMS: Negative, otherwise stated in the HPI. Consultation Report [facility] [place]. [address] NAME: REAL PAREDES : 62 STATUS : ADM IN PAT#: [id number] AGE: 56 ADM/REG DATE : 09/17/16 MR#: [id number] REPORT SERV DATE: 09/17/16 DICTATED BY: JEFFERY UMAÑA DATE: 09/17/16 REPORT STATUS : Draft TRANSCRIBED BY: SUKHWINDER DATE: 09/17/16 PHYSICAL EXAMINATION: VITAL SIGNS: Temperature is 98.0, pulse is 83, blood pressure is 156/88. GENERAL: No apparent distress, on non-rebreather. Thin. SKIN: No petechiae or purpura. NECK: No JVP. Trachea is midline. CARDIOVASCULAR: Regular rate and rhythm. No gallops, rubs, or murmurs. RESPIRATORY: Distant, coarse breath sounds. ABDOMEN: Soft, nontender, and nondistended. Positive bowel sounds. EXTREMITIES: No peripheral edema. Left upper AV fistula. LABORATORY DATA: Sodium is 131, potassium is 4.8, chloride is 92, CO2 is 27, BUN is 32, creatinine is 8.12. Troponin is less than 0.02. BNP is 3028. White blood cell count is 6.8, hemoglobin is 7.8, platelets are 320. IMAGING: Chest x-ray: Pulmonary edema. ASSESSMENT: 1. Hypoxia secondary to volume overload in the setting of chronic obstructive pulmonary disease exacerbation. I do not believe the patient has pneumonia at this time. 2. Volume overload. 3. Chronic obstructive pulmonary disease exacerbation. 4. I do not believe patient has pneumonia at this time based on no evidence of leukocytosis or left shift. 5. History of alcohol use. 6. Right lower extremity edema with history of right shoulder dislocation status post fall. 7. Chronic pancytopenia. 8. End-stage renal disease. 9. Hypertension. PLAN: 1. Hemodialysis. 2. P.r.n. home medications. 3. A.m. labs. 4. Echocardiogram. 5. A.m. chest x-ray. 6. X-ray of the right upper extremity. HUDSON/SUKHWINDER Jeffery Umaña M.D. Consultation Report [address] [address] NAME: REAL PAREDES : 62 STATUS : ADM IN PAT#: [id number] AGE: 56 ADM/REG DATE : 09/17/16 MR#: [id number] REPORT SERV DATE: 09/17/16 DICTATED BY: JEFFERY UMAÑA DATE: 09/17/16 REPORT STATUS : Draft TRANSCRIBED BY: SUKHWINDER DATE: 09/17/16 / [id number] CC: Hood Johnston M.D.
--- NOTE | ~2016-09-17 | HP ---
History And Physical [id number] [place]. [address] NAME: REAL PAREDES : 62 STATUS : ADM IN [facility]#: [id number] AGE: 56 ADM/REG DATE : 09/17/16 MR#: [id number] REPORT SERV DATE: 09/17/16 DICTATED BY: HOOD JOHNSTON DATE: 09/17/16 REPORT STATUS : Draft TRANSCRIBED BY: MODSilver DATE: 09/17/16 DATE OF ADMISSION: 09/17/2016 ADDENDUM: PAST SURGICAL HISTORY: As noted above. ALLERGIES: NO KNOWN DRUG ALLERGIES. HOME MEDICATIONS: From the list that I have from the transferring facility it seemed like he was on amlodipine 10 mg once daily, Coreg 12.5 mg twice daily, and lisinopril 10 mg p.o. daily. SOCIAL HISTORY: This patient is a heavy alcohol abuser and continues to use cigarettes as well. Denies use of illicit substances. FAMILY HISTORY: Father with diabetes and heart disease. Mother with cancer, diabetes, and heart disease. PHYSICAL EXAMINATION: GENERAL: male, lying on the bed, appears to be in moderate to severe respiratory distress. PO2 on room air on ABG about 46. Sats of about 92 on 35% O2. VITAL SIGNS: Blood pressure 163/91, temperature is 97.5, pulse of 81. HEENT: Head is normocephalic, atraumatic. Pupils equal, round, and reactive to light. Extraocular muscles are intact. Sclerae anicteric. Conjunctivae normal. Oropharynx without lesion. Tongue protrusion midline. Uvula midline. NECK: Supple. No jugular venous distention. No carotid bruits or thyromegaly is appreciated. No lymphadenopathy in the neck is palpable. HEART: Tachycardic. No murmurs, rubs, or gallops. PMI nondisplaced. LUNGS: Diffuse bilateral crackles, wet, 1/3 up from both bases. No evidence of any focal consolidation. Some wheezing expiratory is noted. Rhonchis are noted. ABDOMEN: Scaphoid, soft, nontender, good bowel sounds. No rebound or guarding. No organomegaly. EXTREMITIES: Without cyanosis, clubbing, or edema. MUSCULOSKELETAL: Seems to be grossly intact at this time. Left upper extremity fistula for hemodialysis is noted. LABORATORY DATA: Procalcitonin level is pending. Sodium 131, potassium 4.3, chloride 92, bicarb 27, BUN 32, creatinine 8.12. Glucose of 75, albumin is 2.0, total protein is 7.0, calcium is 8.3. Liver function studies are unremarkable. Troponin is less than 0.02. His BNP is 3028. White count is 6.8, hemoglobin of 7.8, hematocrit 23, platelet count is 320,000. No left shift. PT is 22.2. INR is 2.0. IMPRESSION: 1. Pulmonary edema. 2. Hypoxic respiratory failure. History And Physical [address] [address] NAME: REAL PAREDES : 62 STATUS : ADM IN [facility]#: [id number] AGE: 56 ADM/REG DATE : 09/17/16 MR#: [id number] REPORT SERV DATE: 09/17/16 DICTATED BY: HOOD JOHNSTON DATE: 09/17/16 REPORT STATUS : Draft TRANSCRIBED BY: MODL DATE: 09/17/16 3. Chronic obstructive pulmonary disease exacerbation. 4. Possibility of hospital-acquired pneumonia. 5. Alcoholism. 6. End-stage renal disease on hemodialysis 3 times weekly. 7. Chronic pancytopenia. 8. Recent right hip fracture, status post ORIF. 9. Hypertension. PLAN: The patient will be admitted. Hemodialysis should be done immediately in this patient with volume overload. DuoNeb, Brovana, and Pulmicort nebulizing treatments. I will empirically treat him with vancomycin and cefepime. We will obtain blood cultures. O2 support will be given. Consider BiPAP if this patient's oxygenation does not hold up. Home medications will be addressed when available from the pharmacy. The patient remains a full code. MAKI/SUKHWINDER Hood Johnston M.D. / [id number] CC: Hood Johnston M.D.
--- NOTE | ~2016-09-17 | DS ---
Discharge Summary [facility] [address] [facility] [place]. [address] NAME: REAL PAREDES : 62 STATUS : DIS IN PAT#: [id number] AGE: 56 ADM/REG DATE : 09/17/16 MR#: [id number] REPORT SERV DATE: 09/21/16 DICTATED BY: SHALINI MUIR DATE: 09/20/16 REPORT STATUS : Draft TRANSCRIBED BY: MODL DATE: 09/20/16 ADMISSION DATE: 09/17/2016 DISCHARGE DATE: 09/20/2016 DISCHARGE DIAGNOSES: 1. Acute pulmonary edema. 2. Acute hypoxemic respiratory failure. 3. Acute exacerbation of chronic obstructive pulmonary disease. 4. End-stage renal disease, on hemodialysis. 5. Chronic anemia. 6. Acute anemia. 7. Hypertension. 8. Insomnia. 9. Alcoholism. 10.Right femoral neck fracture, nondisplaced, status post open reduction internal fixation, 08/24/2016. 11.Right shoulder dislocation, status post closed reduction, 08/24/2016. 12.Right elbow distal humerus transverse supracondylar fracture minimally displaced, most likely from fall on 08/23/2016, not fully appreciated on initial x-rays, status post long arm splinting and sling placement, Dr. Serrano, 09/18/2016. 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 OPERATIONS/PROCEDURES: Hemodialysis x3. PRESENT ILLNESS: This is a 56-year-old male, who was in this hospital 08/23/2016 to 08/28/2016, discharged by Dr. Johnston with diagnoses: 1. Right hip fracture, status post ORIF by Dr. Arguello. 2. End-stage kidney disease with solitary kidney, currently on three times a week hemodialysis. 3. Chronic alcohol abuse with no evidence of DTs during hospitalization. 4. Chronic obstructive pulmonary disease. 5. Pancytopenia, most likely due to alcohol abuse. 6. History of nephrectomy, donated to his brother. He was transferred to the [facility] [place] for rehab. He received hemodialysis at [place]. He was sent to [facility] with complaints of chest pain and shortness of breath. Then had a fairly abrupt onset in the absence of fever, chills, or nausea or vomiting. At that facility, he was thought to have volume overload. He was transferred here for dialysis as described on admission history and physical examination. ADDITIONAL HISTORY: Per Dr. Johnston. PHYSICAL EXAMINATION: Per Dr. Johnston. ADMISSION LABORATORY: Per Dr. Johnston. Discharge Summary [address] [address] NAME: REAL PAREDES : 62 STATUS : DIS IN PAT#: [id number] AGE: 56 ADM/REG DATE : 09/17/16 MR#: [id number] REPORT SERV DATE: 09/21/16 DICTATED BY: SHALINI MUIR DATE: 09/20/16 REPORT STATUS : Draft TRANSCRIBED BY: MODSilver DATE: 09/20/16 HOSPITAL COURSE: He was admitted by Dr. Johnston with: 1. Pulmonary edema. 2. Hypoxemic respiratory failure. 3. Chronic obstructive pulmonary disease exacerbation. 4. Possibility of hospital-acquired pneumonia. 5. Alcoholism. 6. End-stage renal disease, on hemodialysis three times weekly. 7. Chronic pancytopenia. 8. Recent right hip fracture, status post ORIF. 9. Hypertension. He was admitted to [address] [place] [address]. Johnston consulted Nephrology. The patient was seen by Dr. Umaña. He felt that he had volume overload and did not have pneumonia. Dialysis was initiated on 09/17/2016, 09/18/2016, and 09/19/2016. Per dialysis records, he had 10.5 L of net ultrafiltration. On admission, because of the possibility of healthcare-associated pneumonia and Dr. Johnston obtained cultures and started broad-spectrum antimicrobial therapy with cefepime and vancomycin. With the above-mentioned therapy, the patient's admitting symptoms completely resolved. By 09/20/2016, he had no cough or dyspnea. He was comfortable lying flat in bed. He was eating without nausea, vomiting, or abdominal pain. Blood cultures from admission were no growth x2. His white blood cell count was 6.8 on 09/17/2016 and 5.0 on 09/18/2016. A procalcitonin level was 1.18 on 09/17/2016 and 0.9 on the 09/18/2016. His admission chest x-ray was read as pulmonary venous hypertension with development of interstitial pulmonary edema and increasing right pleural effusion with atelectasis at the right base. A followup chest x-ray on the 09/20/2016 was improved with a persistent right pleural effusion with atelectasis. Clinically, he was not thought to have pneumonia during his hospitalization. While hospitalized, he did complain of right shoulder and arm pain that he had had since his original fall. Additional radiographs were obtained. A right shoulder film was normal. A right elbow film demonstrated an acute transverse fracture distal right humerus. A right forearm film questioned impaction fracture distal radial head. A right hip film showed [address] stabilizing a mildly impacted right femoral neck fracture. He was seen in consultation by Dr. Serrano with diagnosis and treatment as described. The exact reason for his volume overload was unclear unless they are related to dietary indiscretion. Troponins were less than 0.02 x2. An echocardiogram was done that was Discharge Summary [address] [address] NAME: REAL PAREDES : 62 STATUS : DIS IN PAT#: [id number] AGE: 56 ADM/REG DATE : 09/17/16 MR#: [id number] REPORT SERV DATE: 09/21/16 DICTATED BY: SHALINI MUIR DATE: 09/20/16 REPORT STATUS : Draft TRANSCRIBED BY: SUKHWINDER DATE: 09/20/16 normal. His hemoglobin was 7.8, on admission, with a repeat 7.9. Diagnostic studies included a low iron 20, low TIBC 112, low percent sat of 18 with an elevated ferritin of 847. A TSH has been normal at 3.53 in August, it was not repeated. A hepatitis profile was done in August and not repeated. A serum protein electrophoresis was requested, it is not available at this time. Asymptomatic from a cardiopulmonary status on 09/20/2016, it was felt that he could be safely transferred back to [facility] for rehab. He will have dialysis in [place] three times per week. DISCHARGE MEDICATIONS: Norvasc 10 mg daily, PhosLo 667 mg three times daily, carvedilol 12.5 mg twice daily, B12 of 1000 mcg daily, iron sulfate twice daily, Fosrenol 500 mg with meals, Prinivil 10 mg daily, Nephrocaps one daily, MiraLAX packet twice daily, thiamine 100 mg daily, Klonopin 1 mg at bedtime for insomnia, Brovana nebs q.12 hours, Pulmicort nebs 0.5 mg q.12 hours, DuoNeb every four hours while awake, Tylenol as needed, [place] 7.5/325 every six hours as needed for pain, Zofran 4 mg p.o. or sublingually every four hours as needed for nausea, clonidine 0.1 mg every six hours as needed for systolic pressure greater than 170. Discharge time greater than 30 minutes. DD/MODL Shalini Muir M.D. / [id number] CC: Shalini Muir M.D. [facility]
--- NOTE | ~2016-09-17 | HP ---
History And Physical [address] [facility] [place]. [address] NAME: REAL PAREDES : 62 STATUS : ADM IN PAT#: [id number] AGE: 56 ADM/REG DATE : 09/17/16 MR#: [id number] REPORT SERV DATE: 09/17/16 DICTATED BY: HOOD JOHNSTON DATE: 09/17/16 REPORT STATUS : Draft TRANSCRIBED BY: SUKHWINDER DATE: 09/17/16 DATE OF ADMISSION: 09/17/2016 CHIEF COMPLAINT: Shortness of breath. HISTORY OF PRESENT ILLNESS: The patient is a 56-year-old, male with multiple comorbidities, apparently was in a intermediate in [place], [place] after a right hip fracture recovering, became short of breath all of a sudden. He was on dialysis 3 times a week. He denies any fevers or chills. This patient presented to [facility] with complaints of chest pain and shortness of breath, onset occurred about two hours ago, gradually improved somewhat. This patient denied any fevers or chills. He has not had any nausea or vomiting. He says he has been doing his dialysis regularly. He has not had any lower extremity swelling. He was transferred here for need for dialysis and possibility of hospital-acquired pneumonia. At the time of my evaluation, this patient had no nausea, no vomiting. He is in respiratory distress, moderate to severe. His sats were low. We had to put him on a face mask to help his sats and now they are about 92% on 35% of O2. He has not had any other symptoms. He woke up short of breath. He had a sat of 87% and he is normally not on home O2. REVIEW OF SYSTEMS: Twelve-point review of systems otherwise negative. PAST MEDICAL HISTORY: Obtained from prior medical records and directly from the patient. His past medical history is significant for COPD, alcoholism, end-stage renal disease on hemodialysis 3 times weekly, chronic pancytopenia, recent right hip fracture, status post ORIF and hypertension. PAST SURGICAL HISTORY: Significant for nephrectomy as a donation to his brother. Right hip ORIF. DICTATION ENDS HERE MAKI/SUKHWINDER Hood Johnston M.D. / [id number] CC: Hood Johnston M.D.
--- NOTE | ~2016-09-17 | HP ---
History And Physical [address] [place]. [address] NAME: JORGE PAREDES : 62 STATUS : ADM IN [facility]#: [id number] AGE: 56 ADM/REG DATE : 09/17/16 MR#: [id number] REPORT SERV DATE: 09/18/16 DICTATED BY: HOLGER OLIVEIRA DATE: 09/18/16 REPORT STATUS : Draft TRANSCRIBED BY: MODL DATE: 09/18/16 DATE OF ADMISSION: 09/17/2016 REASON: Right elbow fracture, distal humerus, most likely sustained on 08/23/2016. HISTORY OF PRESENT ILLNESS: Mr. Jorge Paredes is a 56-year-old [id number] male, disabled due to medical many medical problems, including end-stage renal disease (dialysis Saturday, Saturday, and Fridays), alcohol and tobacco abuse as well as hypertension and possible cirrhosis, and history of tachycardia arrhythmia. His most recent admission was last month, when on 08/23/2016, he fell off his porch, sustaining a non displaced femoral neck fracture requiring screw pinning by Dr. Arguello on 08/24/2016. At that time, he complained of shoulder pain and humerus pain, but x-rays did not show any definite fractures. He was eventually discharged, but came back because of fluid overload secondary to increased p.o./alcohol intake. After being admitted on 09/17/2016, he underwent dialysis and diuresis. He has lost some weight, but still requires 3 L of O2 per minute via nasal cannula to achieve 94% O2 saturation. Since his initial injury, he has complained of right upper extremity pain and discomfort. X-rays of the shoulder did not show a definite fracture or shoulder dislocation, but x-rays of his elbow showed a minimally displaced distal humerus fracture. I have been asked to evaluate for both problems at this time. He denies any recent injuries since his 08/23/2016 fall. PAST MEDICAL HISTORY: 1. End-stage renal disease. Dialysis Saturday, Saturday, and Fridays. 2. Alcohol and tobacco abuse. 3. Hypertension. 4. Pancytopenia. 5. History of cirrhosis. 6. History of tachycardia. PAST SURGICAL HISTORY: 1. Right hip fracture pinning on 08/24/[address] Arguello. 2. Kidney donation in 1980 to his brother who eventually secondary to renal disease. 3. AV fistula left upper extremity. ALLERGIES: NO KNOWN DRUG ALLERGIES. MEDICATIONS: Home medications: DuoNeb inhaler one neb inhaler q.6 hours, Norvasc 10 mg daily, Bion Tears solution one drop in both eyes p.r.n., Pulmicort Respules 0.5 mg INH twice a day, calcium acetate 667 mg tabs one tab three times a day, Coreg 12.5 mg twice a day, vitamin B12 a 1000 mcg daily, Colace 100 mg twice a day, ferrous sulfate 325 mg daily, Norvasc 7.5/325 one tab p.o. q.6 hours, lisinopril 10 mg daily, and MiraLAX powder package one package p.o. twice a day. SOCIAL HISTORY: Lives alone (). He has children, one with kidney disease. He is unemployed. The patient reports drinking approximately a half a pint of whiskey a day. He smokes one pack per day. He does not engage in any recreational activities. History And Physical [address] [place]. [address] NAME: JORGE PAREDES : 62 STATUS : ADM IN [facility]#: [id number] AGE: 56 ADM/REG DATE : 09/17/16 MR#: [id number] REPORT SERV DATE: 09/18/16 DICTATED BY: HOLGER OLIVEIRA DATE: 09/18/16 REPORT STATUS : Draft TRANSCRIBED BY: SUKHWINDER DATE: 09/18/16 FAMILY HISTORY: Significant for severe kidney disease with a mother, brother, and sister dying from kidney disease and another sister dying from alcohol poisoning and father dying of leukemia. PHYSICAL EXAMINATION: GENERAL: A fairly pleasant 56-year-old male, lying in bed, still with his street clothes on, in no apparent distress and right arm held close to his body. VITAL SIGNS: Blood pressure 162/78, heart rate 88, temperature 98.9, respiratory rate 18, and has 94% saturation on 3 L. HEENT: Missing teeth. Sclerae nonicteric. Pharynx not injected. C-spine nontender. EXTREMITIES: Left shoulder, elbow, wrist, and all fingers with functional range of motion. No pain with range of motion testing. Right upper extremity is held close to the body and there is swelling and tenderness about the elbow region. The elbow has limited range of motion with flexion and extension range of motion of only approximately 20 degrees of flexion and 20 degrees of extension from 90 degrees of flexion. Anything more than this is met with pain and discomfort and there is guarding of the upper extremity. The shoulder is nontender and passive range of motion is pretty good, but active range of motion is limited secondary to elbow pain. The right wrist and all fingers have full range of motion. There is an IV on the right arm and this was removed. The left upper extremity with an AV fistula on the right anterior mid arm area. The TLS is nontender and his right hip has dressing in place and range of motion was not performed. The left lower extremity, he is able to tolerate log rolling of the left hip and the knee is nontender. Both ankles have full dorsi and plantar flexion and the calves are soft. All toes with onychomycosis. X-RAYS: 1. Two views of the right hip taken today shows a slight impaction at the fracture site with three screws in place. 2. Two views of the right elbow taken 09/17/2016 shows a minimally displaced transverse fracture of the distal humerus, true lateral was not taken today and the elbow appears to have some callus formation at the fracture site. No comment can be made about the radial head. 3. Two views of the right shoulder also taken on 09/17/2016 does not show any definite fractures or definite displacement. This is based on an oblique AP and a lateral view. IMPRESSION: 1. Right elbow distal humerus transverse supracondylar fracture minimally displaced, most likely from fall on 08/23/2016, not fully appreciated on initial x-rays. 2. Right shoulder pain possibly due to above fracture or due to a rotator cuff or other soft tissue injury. 3. Right hip fracture from fall on 08/23/2016 requiring pinning of femoral neck by Dr. Arguello on 08/24/2016. 4. End-stage renal disease. 5. EtOH and tobacco abuse. 6. Recent bounce back to the hospital due to fluid overload-noncompliance and possible ETOH abuse. History And Physical [address] [place]. [address] NAME: JORGE PAREDES : 62 STATUS : ADM IN [facility]#: [id number] AGE: 56 ADM/REG DATE : 09/17/16 MR#: [id number] REPORT SERV DATE: 09/18/16 DICTATED BY: HOLGER OLIVEIRA DATE: 09/18/16 REPORT STATUS : Draft TRANSCRIBED BY: SUKHWINDER DATE: 09/18/16 PLAN: 1. The right arm will be placed in a long-arm splint and a sling with the splint not removable, but the sling removable. This was put on by myself today. Afterwards the patient stated improvement in discomfort in the elbow region. 2. A followup with me in 7 to 10 days. SHEA/SUKHWINDER Holger Oliveira M.D. / [id number] CC: Tang Muir M.D.
[~2016-09-17 05:56] MED LIST: BION TEARS OPH; COREG12 PO; CYANO1000T PO; NORV10 PO; PRIN10 PO
[2016-09-17] MEDS ORDERED: MIRALAX POWDER1 PKT PO (06:07)
[2016-09-17] MEDS ORDERED: PHOSLO PO (06:10)
[2016-09-17] MEDS ORDERED: DSS PO (06:13)
[2016-09-17] MEDS ORDERED: COMBIVENT RESPIM4 GM REP (06:13)
[2016-09-17] MEDS ORDERED: FERROUS SULF325 M1 PO (06:15)
[2016-09-17 07:08] LABS: MEAN CORPUS HGB CONC 33.9 g/dL (32.0-36.0); MEAN CORPUSCULAR HEMOGLOB 23.6 pg (26.0-34.0); MEAN PLATELET VOLUME 7.9 fL (9.2-13.0); PLATELET COUNT 320 10/3/uL (150-400); RBC DISTRIBUTION WIDTH 19.5 % (12.0-16.0); WHITE BLOOD CELLS 6.8 10/3/uL (4.5-10.5)
[2016-09-17 07:17] LABS: HEMOGLOBIN 7.8 g/dL (13.6-17.8); MANUAL DIFF YES %; MEAN CORPUSCULAR VOLUME 69.7 fL (80-100)
[2016-09-17 07:22] LABS: A/G RATIO 0.4 (0.7-1.9); CALCIUM, SERUM 8.3 MG/DL (8.5-10.4); CHLORIDE, SERUM 92 MMOL/L (96-112); CO2 (CARBON DIOXIDE) 27 MMOL/L (24-34); POTASSIUM, SERUM 4.8 MMOL/L (3.5-5.3); SGOT(AST) 12 U/L (5-40); SGPT(ALT) 7 U/L (5-65); SODIUM, SERUM 131 MMOL/L (135-148); TOTAL BILIRUBIN 0.4 MG/DL (0-1.2); TROPONIN I <0.02 NG/ML (<0.05)
[2016-09-17 07:23] LABS: ALKALINE PHOSPHATASE 85 U/L (45-117); BUN (BLOOD UREA NITROGEN) 32 MG/DL (6-23); CREATININE 8.12 MG/DL (0.70-1.30); GFR AFRICAN AMERICAN 8 ML/MIN (>=60); GFR NON AFRICAN AMERICAN 7 ML/MIN (>=60); GLUCOSE, SERUM 75 MG/DL (60-99)
[2016-09-17 07:40] LABS: ANISOCYTOSIS 1+ (5-10/OIF) (0-5/OIF); PLATELET ESTIMATE ADQ (ADEQUATE); RBC MORPHOLOGY ABN (NORMAL)
[2016-09-17 07:41] LABS: HYPOCHROMIA 1+ (3-10/OIF) (0-2/OIF)
[2016-09-17 09:32] LABS: ALLENS TEST Pos; BE (BASE EXCESS) 1.6 MEQ/L (0 +/- 2.5); CARBOXYHEMOGLOBIN 1.8 % (0-3); HCO3 (ACTUAL BICARBONATE) 24.1 MEQ/L (23-27); HEMOBLOGIN CONTENT 14.1 G/DL (14-18); INSTRUMENT SERIAL # 35151; METHEMOGLOBIN 0.4 % (0-3); PCO2 (CO2 TENSION) 32 MMHG (35-45); PO2 (O2 TENSION) 47 MMHG (79-93); SAMPLE Arterial
[2016-09-17 09:44] LABS: PROCALCITONIN 1.18 ng/mL (<0.5)
[2016-09-17] MEDS ORDERED: DUONEB INH (14:16)
[2016-09-17] MEDS ORDERED: NORCO1 TA2 PO (14:17)
[2016-09-17] MEDS ORDERED: PULRESP.5 INH (14:17)
[2016-09-18 04:42] LABS: BASOPHILS 0.6 %; BASOPHILS ABSOLUTE 0.03 10/3/uL (0.0-0.16); EOSINOPHILS 5.4 %; EOSINOPHILS ABSOLUTE 0.27 10/3/uL (0.0-0.53); HEMATOCRIT 23.8 % (40.0-51.0); HEMOGLOBIN 7.9 g/dL (13.6-17.8); IMMATURE GRANULOCYTES 0.2 %; IMMATURE GRANULOCYTES ABSOLUTE 0.01 10/3/uL (0.0-0.11); LYMPHOCYTES 19.9 %; LYMPHOCYTES ABSOLUTE 0.99 10/3/uL (0.67-4.30); MANUAL DIFF NO %; MEAN CORPUS HGB CONC 33.2 g/dL (32.0-36.0); MEAN CORPUSCULAR HEMOGLOB 23.6 pg (26.0-34.0); MEAN PLATELET VOLUME 8.6 fL (9.2-13.0); MONOCYTES 19.9 %; MONOCYTES ABSOLUTE 0.99 10/3/uL (0.21-1.20); NEUTROPHILS ABSOLUTE 2.69 10/3/uL (2.02-8.40); PLATELET COUNT 355 10/3/uL (150-400); RBC DISTRIBUTION WIDTH 19.5 % (12.0-16.0); RED CELL COUNT 3.35 10/6/uL (4.7-6.1)
[2016-09-18 04:52] LABS: CALCIUM, SERUM 8.4 MG/DL (8.5-10.4); CHLORIDE, SERUM 96 MMOL/L (96-112); CO2 (CARBON DIOXIDE) 27 MMOL/L (24-34); GLUCOSE, SERUM 78 MG/DL (60-99); POTASSIUM, SERUM 4.5 MMOL/L (3.5-5.3); SODIUM, SERUM 134 MMOL/L (135-148)
[2016-09-18 04:54] LABS: BUN (BLOOD UREA NITROGEN) 20 MG/DL (6-23); CREATININE 5.55 MG/DL (0.70-1.30); GFR AFRICAN AMERICAN 12 ML/MIN (>=60); GFR NON AFRICAN AMERICAN 11 ML/MIN (>=60); PHOSPHORUS, SERUM 5.3 MG/DL (2.5-4.5)
[2016-09-18 14:40] LABS: % IRON SAT 18 % (20-50); FERRITIN 847 NG/ML (26-388); IRON BINDING CAPACITY 112 MCG/DL (250-450); IRON, SERUM 20 MCG/DL (35-150); TROPONIN I <0.02 NG/ML (<0.05)
[2016-09-18 15:43] LABS: PROCALCITONIN 0.99 ng/mL (<0.5)
[2016-09-19 10:04] LABS: ALBUMIN 2.2 G/DL (3.5-5.0); CALCIUM, SERUM 8.9 MG/DL (8.5-10.4); CHLORIDE, SERUM 100 MMOL/L (96-112); CO2 (CARBON DIOXIDE) 27 MMOL/L (24-34); POTASSIUM, SERUM 3.6 MMOL/L (3.5-5.3); SODIUM, SERUM 136 MMOL/L (135-148)
[2016-09-19 10:05] LABS: BUN (BLOOD UREA NITROGEN) 13 MG/DL (6-23); CREATININE 3.95 MG/DL (0.70-1.30); GFR AFRICAN AMERICAN 19 ML/MIN (>=60); GFR NON AFRICAN AMERICAN 16 ML/MIN (>=60); GLUCOSE, SERUM 137 MG/DL (60-99); PHOSPHORUS, SERUM 2.9 MG/DL (2.5-4.5)
[2016-09-19 10:12] LABS: INTERNATIONAL NORMAL RATI 1.3 UNITS (-)
[2016-09-19 10:13] LABS: PROTIME (NOT ORD) 16.4 SEC (12.0-14.5)
== END 2016-09-20 12:09 | DRG 189 ==
LOC: 6NO 05:56
PROVIDERS: Internal Medicine; Internal Medicine Interventional Cardiology; Internal Medicine Nephrology
PROC: 5A1D60Z (ICD-10-PCS; principal; 2016-09-17)
DX: J81.0 Acute pulmonary edema (principal); J96.01 Acute respiratory failure with hypoxia; D61.811 Other drug-induced pancytopenia; I12.0 Hypertensive chronic kidney disease with stage 5 chronic kidney disease or end stage renal disease; N18.6 End stage renal disease; I27.2 Other secondary pulmonary hypertension; D62 Acute posthemorrhagic anemia; F10.288 Alcohol dependence with other alcohol-induced disorder; J44.1 Chronic obstructive pulmonary disease with (acute) exacerbation; S42.411A Displaced simple supracondylar fracture without intercondylar fracture of right humerus, initial encounter for closed fracture; G47.00 Insomnia, unspecified; I87.8 Other specified disorders of veins; F17.210 Nicotine dependence, cigarettes, uncomplicated; S72.001D Fracture of unspecified part of neck of right femur, subsequent encounter for closed fracture with routine healing; W17.89XD Other fall from one level to another, subsequent encounter; Z90.5 Acquired absence of kidney; Z99.2 Dependence on renal dialysis; Z84.1 Family history of disorders of kidney and ureter; Z83.3 Family history of diabetes mellitus; Z82.49 Family history of ischemic heart disease and other diseases of the circulatory system; Z81.1 Family history of alcohol abuse and dependence; Z80.6 Family history of leukemia; Z91.11 Patient's noncompliance with dietary regimen
CPT/HCPCS: 36600; 71010; 71020; 73030-RT; 73080-RT; 73090-RT; 73502-RT; 80053; 80069; 80202; 82728; 82805; 83540; 83550; 83735; 83880; 84145; 84484; 85025; 85610; 87040; 93005; 94640; 97161-GP; 97166-GO; A9270-GY; C8929; G0257; G8978-CL-GP; G8979-CJ-GP; J0610; J0692; J3370; J3475; Q9957